=== PATIENT | female | born 1945 | race Caucasian/White ===

== ENCOUNTER → 2023-12-26 13:08 | Outpatient (REF) | payer MEDICARE, BC, SELFPAY ==
[2023-12-26 15:59] LABS: % Basophils 0.6 % (0-2); % Eosinophils 1.7 % (0-6); % Immature Granulocytes 0.2 % (0-0.5); % Lymphocytes 28.6 % (20.5-51.1); % Monocytes 7.6 % (1.7-9.3); % Neutrophils 61.3 % (42.2-75.2); Absolute Eosinophils 0.1 10^3/uL (0-0.7); Absolute Lymphocytes 1.6 10^3/uL (1.2-3.4); Absolute Monocytes 0.4 10^3/uL (0.1-0.6); Absolute Neutrophils 3.3 10^3/uL (1.4-6.5); Hematocrit 43.2 % (37.0-47.0); Hemoglobin 14.5 g/dL (12.0-16.0); Mean Corp Hgb Conc. 33.6 g/dL (33.0-37.0); Mean Corpuscular Hgb 32.3 pg (27.0-31.0); Mean Corpuscular Volume 96.2 fL (81.0-99.0); Nucleated Red Blood Cells % 0 %; Platelet Count 260 10^3/uL (130-400); Red Blood Cell Count 4.49 10^6/uL (4.20-5.40); White Blood Cell Count 5.4 10^3/uL (4.8-10.8)
[2023-12-26 16:08] LABS: Blood Urea Nitrogen 16 mg/dl (7-17)
[2023-12-26 16:22] LABS: Vitamin D, 25-OH*** 53.7 ng/mL (30-80)
[2023-12-26 16:35] LABS: TSH Reflex To Free T4 1.09 uIU/ml (0.47-4.68)
[2023-12-26 16:55] LABS: Vitamin B12 442 pg/ml (239-931)
[2023-12-28 20:15] LABS: ANA, IgG Reflex to HEp-2 None Detected (None Detected)
== END ==
LOC: HWLAB 13:08
PROVIDERS: ATTENDING PHYSICIAN Nurse Practitioner Adult Health; FAMILY PHYSICIAN Internal Medicine
DX: R05.3 Chronic cough (principal); R51.9 Headache, unspecified; K21.9 Gastro-esophageal reflux disease without esophagitis; L65.9 Nonscarring hair loss, unspecified; R21 Rash and other nonspecific skin eruption; R53.82 Chronic fatigue, unspecified; E55.9 Vitamin D deficiency, unspecified; D51.9 Vitamin B12 deficiency anemia, unspecified
CPT/HCPCS: 36415; 82306; 82565; 82607; 84443; 84520; 85025; 86038

== ENCOUNTER → 2024-01-01 12:53 | Outpatient (REF) | payer MEDICARE, BC, SELFPAY | LOC: HWRAD 12:53 | PROVIDERS: ATTENDING PHYSICIAN Internal Medicine | DX: R51.9 Headache, unspecified (principal) | CPT/HCPCS: 70470; Q9967 ==

== ENCOUNTER → 2024-03-19 08:28 | Outpatient (REF) | payer MEDICARE, BC, SELFPAY ==
[2024-03-19 10:06] LABS: % Basophils 0.8 % (0-2); % Eosinophils 3.8 % (0-6); % Immature Granulocytes 0.2 % (0-0.5); % Lymphocytes 30.9 % (20.5-51.1); % Monocytes 8.8 % (1.7-9.3); % Neutrophils 55.5 % (42.2-75.2); Absolute Eosinophils 0.2 10^3/uL (0-0.7); Absolute Lymphocytes 1.5 10^3/uL (1.2-3.4); Absolute Monocytes 0.4 10^3/uL (0.1-0.6); Absolute Neutrophils 2.6 10^3/uL (1.4-6.5); Hematocrit 41.1 % (37.0-47.0); Mean Corp Hgb Conc. 34.1 g/dL (33.0-37.0); Mean Corpuscular Hgb 32.7 pg (27.0-31.0); Mean Platelet Volume 10.3 fL (7.4-10.4); Nucleated Red Blood Cells % 0 %; Platelet Count 219 10^3/uL (130-400); Red Blood Cell Count 4.28 10^6/uL (4.20-5.40); Red Cell Dist. Width 12.7 % (11.5-14.5); White Blood Cell Count 4.8 10^3/uL (4.8-10.8)
[2024-03-19 10:21] LABS: ALT (SGPT) 17 U/L (0-35); AST (SGOT) 25 U/L (14-36); Albumin 4.1 g/dl (3.5-5.0); Alkaline Phosphatase 53 U/L (38-126); Blood Urea Nitrogen 19 mg/dl (7-17); Calcium 9.9 mg/dl (8.4-10.2); Carbon Dioxide 28 mmol/L (22-30); Chloride 106 mmol/L (98-107); Glucose 123 mg/dl (70-99); HDL Cholesterol 76 mg/dl; LDL Cholesterol, Calculated 105 mg/dl; Potassium 4.3 mmol/L (3.5-5.1); Sodium 140 mmol/L (135-145); Total Bilirubin 0.5 mg/dl (0.2-1.3); Total Cholesterol 200 mg/dl (50-199); Triglyceride 99 mg/dl (10-149); Very Low Density Lipoprotein 19 mg/dl (0-30); eGFR > 60.00
== END ==
LOC: HWLAB 08:28
PROVIDERS: ATTENDING PHYSICIAN Internal Medicine
DX: I10 Essential (primary) hypertension (principal); E83.52 Hypercalcemia; Z00.00 Encounter for general adult medical examination without abnormal findings
CPT/HCPCS: 36415; 80053; 80061; 83036; 85025

== ENCOUNTER → 2024-04-08 13:22 | Outpatient (REF) | payer MEDICARE, BC, SELFPAY | LOC: HWRAD 13:22 | PROVIDERS: ATTENDING PHYSICIAN Internal Medicine | DX: R06.02 Shortness of breath (principal) | CPT/HCPCS: 71046 ==

== ENCOUNTER → 2024-04-11 08:05 | Outpatient (REF) | payer MEDICARE, BC, SELFPAY | LOC: DHCBC/DCA 08:05 | PROVIDERS: ATTENDING PHYSICIAN Internal Medicine | DX: R06.02 Shortness of breath (principal) | CPT/HCPCS: 78452; 93017; A9500; J2785 ==

== ENCOUNTER 2024-04-18 06:30 | Day surgery (SDC) | payer MEDICARE, BC, SELFPAY ==
--- NOTE | 2024-04-17 15:58 | ITS.CL.CATH ---
Emt B - Catheterization
Cardiac Catheterization
Procedure Report:
LEFT HEART CATHETERIZATION
Date of Procedure: April 18, 2024
Referring: Alexandro Freire D.O.
PROCEDURES:
1. Left catheterization, coronary angiogram.
2. Ultrasound-guided access
INDICATION: Ms. Torre is a 78-year-old female with past medical history of hypertension, hyperlipidemia, former smoker, family history premature coronary artery disease with ongoing dyspnea on exertion and an abnormal stress test who is being
referred now for a left heart catheterization and coronary angiogram to rule out obstructive CAD. She was recently started on a daily baby aspirin. Her pharmacologic nuclear stress test from April 11, 2024 showed a small area of mildly decreased
perfusion that is reversible in the apical septal, apical anterior and apical segments consistent with ischemia. Transient ischemic dilatation is not present. Her echocardiogram from October, showed normal biventricular function without
significant valvular abnormalities.
ACCESS: Right radial artery, 5 Portuguese sheath, under ultrasound guidance
HEMODYNAMICS : (mmHg)
AO (s/d) : 169/97
LV (s/d) : 166/9
LVEDP : 20
CORONARY FINDINGS
DOMINANCE: Right
LEFT MAIN: The left main artery is a large-caliber, short vessel which gives rise to the left anterior descending artery and the left circumflex artery. Normal coronary artery.
LEFT ANTERIOR DESCENDING: The left anterior descending artery is a medium caliber vessel which gives rise to 1 major diagonal branch and tapers into a very small vessel in the distal left ventricle close to the apex. There is minimal luminal
irregularities.
CIRCUMFLEX: The left circumflex artery is a medium caliber vessel which gives rise to 1 major branching obtuse marginal branch. There is minimal luminal irregularities.
RIGHT CORONARY ARTERY: The right coronary artery is a large-caliber, dominant vessel which gives rise to the right posterior descending artery and the right posterolateral system. Normal coronary artery
SEDATION: 25 minutes of procedural sedation was utilized. An independent medical imaging tech was present to assist with and help manage the patient's level of consciousness and physiologic status.
RADIATION SUMMARY: Fluoro Time (min): 1.7, Dose (mGy): 138.25, DAP (Gy.cm2) : 10.5
Closure Device: Vascular band over right radial artery, 11 cc of air
CONCLUSIONS
1. No obstructive coronary artery disease.
2. Elevated LVEDP at 20 mmHg.
RECOMMENDATIONS
1. Will initiate low-dose diuretic therapy given elevated LVEDP with 6-month history of progressive dyspnea on exertion. Encouraged a low-sodium diet.
2. Aggressive management of cardiovascular risk factors.
3. Wean radial band per protocol.
Copy to: Alexandro Freire D.O.
Angelina Casey MD, FACC, [facility]
[2024-04-18] VITALS (9 sets, daily range): BP systolic 131–176; BP diastolic 65–136; BMI 29.4
[2024-04-18] MEDS: LOW STRENGTH ASPIRIN 243 MG PO (07:33)
[2024-04-18] MEDS: LASIX 20 MG IV (09:13)
--- NOTE | 2024-04-18 09:55 | ITS.CL.CATH ---
Intermediate Project Manager - Catheterization
Cardiac Catheterization
Procedure Report:
RIGHT HEART CATHETERIZATION
Date of Procedure: April 18, 2024
Referring: Srikanth Jensen
INDICATION: Assess invasive hemodynamics
Hemodynamics (mmHg):
RA (m) : 23
RV (s/d,m) : 65/14, 23
PA (s/d, m) : 67/31, 43
PCWP (m) : Given significantly dilated right atria despite multiple attempts, and using wire to guide into distal PA, [place]-A[place] catheter Prolapsing within the RA/RV could not be advanced to a wedge position.
PA saturation: 53.1% on room air
AO saturation: 97.0% on room air
RA saturation: 51.8% on room air
Cardiac Output : 3.70 L/min
Cardiac Index : 2.0 L/min/m-2
Systemic vascular resistance: 1059 dsc^(-5)
Pulmonary vascular resistance: 3 coreas unit (calculated using PA diastolic pressure is an estimate of pulmonary capillary wedge pressure)
Heart rate: 80 bpm
RADIATION SUMMARY: Fluoro Time (min): 6.9, Dose (mGy): 61, DAP (Gy.cm2) : 10.8
CONCLUSION:
1. Significantly elevated right and left-sided filling pressures with severe pulmonary hypertension and normal cardiac output
Copy to: Srikatnh Jensen, Luis Eduardo Doshi, Vignesh Serrato
Angelina Casey MD, [facility], [facility]
== END 2024-04-18 12:26 | disposition home or self-care (01) ==
LOC: CATH 06:30
PROVIDERS: ATTENDING PHYSICIAN Internal Medicine Interventional Cardiology; FAMILY PHYSICIAN Internal Medicine; OTHER PHYSICIAN Nuclear Medicine Nuclear Cardiology
DX: R06.09 Other forms of dyspnea (principal); R94.39 Abnormal result of other cardiovascular function study; R94.31 Abnormal electrocardiogram [ECG] [EKG]; I10 Essential (primary) hypertension; E78.5 Hyperlipidemia, unspecified; K21.9 Gastro-esophageal reflux disease without esophagitis; Z87.891 Personal history of nicotine dependence; Z85.3 Personal history of malignant neoplasm of breast; Z82.49 Family history of ischemic heart disease and other diseases of the circulatory system; Z79.82 Long term (current) use of aspirin
CPT/HCPCS: 99152; 99153; C1894; 93458; Q9967

== ENCOUNTER → 2024-04-23 13:31 | Outpatient (REF) | payer MEDICARE, BC, SELFPAY | LOC: RAD 13:31 | PROVIDERS: ATTENDING PHYSICIAN Nurse Practitioner Adult Health; FAMILY PHYSICIAN Internal Medicine | DX: I80.9 Phlebitis and thrombophlebitis of unspecified site (principal); Z98.890 Other specified postprocedural states; M79.89 Other specified soft tissue disorders; I80.8 Phlebitis and thrombophlebitis of other sites | CPT/HCPCS: 93971 ==

== ENCOUNTER → 2024-04-25 11:48 | Outpatient (REF) | payer MEDICARE, BC, SELFPAY ==
[2024-04-25 16:00] LABS: Blood Urea Nitrogen 19 mg/dl (7-17); Calcium 10.3 mg/dl (8.4-10.2); Carbon Dioxide 28 mmol/L (22-30); Chloride 101 mmol/L (98-107); Glucose 103 mg/dl (70-99); Potassium 4.1 mmol/L (3.5-5.1); Sodium 138 mmol/L (135-145); eGFR > 60.00
== END ==
LOC: HWLAB 11:48
PROVIDERS: ATTENDING PHYSICIAN Nuclear Medicine Nuclear Cardiology; FAMILY PHYSICIAN Internal Medicine; REFERRING PHYSICIAN Internal Medicine Interventional Cardiology
DX: Z13.6 Encounter for screening for cardiovascular disorders (principal)
CPT/HCPCS: 36415; 80048

== ENCOUNTER → 2024-07-16 13:01 | Outpatient (REF) | payer MEDICARE, BC, SELFPAY | LOC: HWRAD 13:01 | PROVIDERS: ATTENDING PHYSICIAN Nurse Practitioner Adult Health | DX: M79.674 Pain in right toe(s) (principal) | CPT/HCPCS: 73630 ==

== ENCOUNTER → 2024-08-28 09:11 | Outpatient (REF) | payer MEDICARE, BC, SELFPAY ==
[2024-08-28 12:38] LABS: ALT (SGPT) 21 U/L (0-35); AST (SGOT) 30 U/L (14-36); Albumin 4.7 g/dl (3.5-5.0); Alkaline Phosphatase 45 U/L (38-126); Blood Urea Nitrogen 20 mg/dl (7-17); Calcium 9.9 mg/dl (8.4-10.2); Carbon Dioxide 28 mmol/L (22-30); Chloride 101 mmol/L (98-107); Glucose 107 mg/dl (70-99); HDL Cholesterol 101 mg/dl; LDL Cholesterol, Calculated 111 mg/dl; Potassium 4.3 mmol/L (3.5-5.1); Sodium 143 mmol/L (135-145); Total Bilirubin 0.7 mg/dl (0.2-1.3); Total Cholesterol 225 mg/dl (50-199); Triglyceride 69 mg/dl (10-149); Uric Acid 5.2 mg/dl (2.5-6.2); Very Low Density Lipoprotein 13 mg/dl (0-30); eGFR > 60.00
[2024-08-28 15:07] LABS: Glycohemoglobin (HgbA1c) 5.5 % (4.0-5.6)
== END ==
LOC: HWLAB 09:11
PROVIDERS: ATTENDING PHYSICIAN Nurse Practitioner Adult Health
DX: I10 Essential (primary) hypertension (principal); M19.90 Unspecified osteoarthritis, unspecified site; M79.674 Pain in right toe(s); E78.2 Mixed hyperlipidemia; R73.03 Prediabetes
CPT/HCPCS: 36415; 80053; 80061; 83036; 84550

== ENCOUNTER → 2024-11-24 13:51 | Outpatient (REF) | payer MEDICARE, BC, SELFPAY | LOC: HWRAD 13:51 | PROVIDERS: ATTENDING PHYSICIAN Nurse Practitioner Adult Health | DX: M54.9 Dorsalgia, unspecified (principal); M81.0 Age-related osteoporosis without current pathological fracture | CPT/HCPCS: 72072 ==

== ENCOUNTER → 2025-01-19 08:38 | Outpatient (REF) | payer MEDICARE, BC, SELFPAY ==
[2025-01-19 11:40] LABS: % Basophils 0.4 % (0-2); % Immature Granulocytes 0.1 % (0-0.5); % Lymphocytes 22.7 % (20.5-51.1); % Monocytes 8.3 % (1.7-9.3); % Neutrophils 66.5 % (42.2-75.2); Absolute Eosinophils 0.1 10^3/uL (0-0.7); Absolute Lymphocytes 1.6 10^3/uL (1.2-3.4); Absolute Monocytes 0.6 10^3/uL (0.1-0.6); Absolute Neutrophils 4.7 10^3/uL (1.4-6.5); Hematocrit 42.3 % (37.0-47.0); Hemoglobin 14.2 g/dL (12.0-16.0); Mean Corp Hgb Conc. 33.6 g/dL (33.0-37.0); Mean Corpuscular Volume 95.3 fL (81.0-99.0); Mean Platelet Volume 10.5 fL (7.4-10.4); Nucleated Red Blood Cells % 0 %; Platelet Count 244 10^3/uL (130-400); Red Blood Cell Count 4.44 10^6/uL (4.20-5.40); White Blood Cell Count 7.1 10^3/uL (4.8-10.8)
[2025-01-19 12:52] LABS: ALT (SGPT) 16 U/L (0-35); AST (SGOT) 22 U/L (14-36); Albumin 4.3 g/dl (3.5-5.0); Alkaline Phosphatase 63 U/L (38-126); Blood Urea Nitrogen 16 mg/dl (7-17); Calcium 9.7 mg/dl (8.4-10.2); Carbon Dioxide 25 mmol/L (22-30); Chloride 102 mmol/L (98-107); Glucose 93 mg/dl (70-99); Potassium 4.1 mmol/L (3.5-5.1); Sodium 138 mmol/L (135-145); Total Bilirubin 0.9 mg/dl (0.2-1.3); Total Protein 7.2 g/dl (6.3-8.2); eGFR > 60.00
[2025-01-19 14:22] LABS: Vitamin D, 25-OH*** 61.9 ng/mL (30-80)
[2025-01-19 14:36] LABS: Cortisol, Random 9.5 ug/dl; TSH Reflex To Free T4 1.52 uIU/ml (0.47-4.68)
[2025-01-19 15:58] LABS: IgA 186 mg/dl (70-400)
[2025-01-20 10:37] LABS: Intact PTH 41.6 pg/ml (13.6-85.8)
[2025-01-20 17:27] LABS: tTG IgA Antibody 1.38 FLU (0.00-4.99)
[2025-01-21 18:36] LABS: Endomysial IgA Antibody Titer <1:10 (<1:10)
== END ==
LOC: HWLAB 08:38
PROVIDERS: ATTENDING PHYSICIAN Internal Medicine Rheumatology; FAMILY PHYSICIAN Internal Medicine; REFERRING PHYSICIAN Physician Assistant
DX: M17.0 Bilateral primary osteoarthritis of knee (principal); M81.0 Age-related osteoporosis without current pathological fracture; R60.9 Edema, unspecified; Z51.81 Encounter for therapeutic drug level monitoring; E03.9 Hypothyroidism, unspecified; E21.5 Disorder of parathyroid gland, unspecified; E55.9 Vitamin D deficiency, unspecified
CPT/HCPCS: 36415; 80053; 82306; 82533; 82784; 83516; 83970; 84443; 85025; 86231